=== PATIENT | female | born 1970 | race Caucasian/White ===

== ENCOUNTER 2017-02-15 00:35 | Emergency (ER) | payer OTHER ==
[~2017-02-15] VITALS: Ht 165.1 cm; Wt 100.0 kg
[~2017-02-15 00:35] MED LIST: DIAZ10 PO
[2017-02-15] MEDS ORDERED: TraMADol HCL 50 MG TABLET PO ONE (05:00)
[2017-02-15] MEDS ORDERED: ONDANSETRON HCL 4 MG TABLET PO ONE (05:00)
[2017-02-15 05:14] VITALS: BP 135/78
== END 2017-02-15 05:24 | disposition home or self-care (01) ==
LOC: EDUNIT# 00:35 → EMS 00:37
DX: R11.2 Nausea with vomiting, unspecified (principal); R19.7 Diarrhea, unspecified; Z88.8 Allergy status to other drugs, medicaments and biological substances
CPT/HCPCS: 99283; Q0162

== ENCOUNTER 2020-01-21 11:10 | Emergency (ER) | payer OTHER ==
[~2020-01-21] VITALS: Ht 167.6 cm; Wt 100.0 kg
[2020-01-21] MEDS ORDERED: ACETAMINOPHEN 500 MG TABLET PO ONE (12:00)
[2020-01-21] MEDS ORDERED: BENZONATATE 100 MG CAPSULE PO ONE (12:00)
[2020-01-21 13:14] LABS: INFLUENZA TYPE A NEGATIVE FOR TYPE A (NEGATIVE); INFLUENZA TYPE B POSITIVE FOR TYPE B (NEGATIVE)
[2020-01-21 13:50] VITALS: BP 150/94
== END 2020-01-21 13:50 | disposition home or self-care (01) ==
LOC: EMS 11:14 → EDBD 11:14 → EMS 13:50
DX: J10.1 Influenza due to other identified influenza virus with other respiratory manifestations (principal); Z88.8 Allergy status to other drugs, medicaments and biological substances; Z79.899 Other long term (current) drug therapy; Z03.818 Encounter for observation for suspected exposure to other biological agents ruled out
CPT/HCPCS: 87635; 87804

== ENCOUNTER 2021-06-15 10:07 | Emergency (ER) | payer OTHER ==
[~2021-06-15] VITALS: Ht 167.6 cm; Wt 88.6 kg
[2021-06-15 10:13] VITALS: BP 129/67
== END 2021-06-15 10:53 | disposition home or self-care (01) ==
LOC: EMS 10:17
DX: S01.01XD Laceration without foreign body of scalp, subsequent encounter (principal); G43.909 Migraine, unspecified, not intractable, without status migrainosus; Z88.5 Allergy status to narcotic agent; Z88.8 Allergy status to other drugs, medicaments and biological substances; Z90.89 Acquired absence of other organs; X58.XXXD Exposure to other specified factors, subsequent encounter
CPT/HCPCS: 99281; Z7502